=== PATIENT | female | born 2000 | race Caucasian/White ===

== ENCOUNTER 2023-09-04 12:04 | Emergency (ER) | payer OTHER ==
[2023-09-04 12:17] VITALS: RESP 18; TEMP 98.2
[2023-09-04 12:33] LABS: Absolute Neutrophil Ct (ANC) 6.73 x10^3/uL (1.4-6.9); BASOPHIL % 0.4 % (0.0-0.4); Basophil (Absolute #) 0.04 x10^3/uL (0-0.4); Eosinophil % 1.6 % (0.00-5.0); Eosinophil (Absolute #) 0.18 x10^3/uL (0-0.5); Hematocrit 45.4 % (35-47); Hemoglobin 14.6 g/dL (12.0-16.0); IMMATURE GRAN # 0.04 x10^3u/L (0.00-0.03); IMMATURE GRAN % 0.4 % (0.00-0.4); Lymphocyte (Absolute #) 3.55 x10^3/uL (1.0-4.6); Lymphocytes % 31.4 % (24.0-44.0); Mean Cell Volume 93.6 fL (78-100); Mean Corpuscular Hemoglobin 30.1 pg (26-32); Mean Corpuscular Hgb Concent. 32.2 g/dL (32-36); Mean Platelet Volume 9.5 fL (7.5-11.0); Monocyte (Absolute #) 0.78 x10^3/uL (0.0-1.3); Monocytes % 6.9 % (0.0-12.0); Neutrophil % 59.3 % (36.0-66.0); Platelet Count 465 x10^3/uL (150-450); Red Blood Count 4.85 x10^6/uL (4.1-5.4); Red Cell Distribution Width 12.1 % (11.5-14.0); White Blood Count 11.3 x10^3/uL (4.0-10.5)
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
[2023-09-04 12:50] LABS: ALBUMIN 4.5 g/dL (3.5-5.0); ANION GAP 12.3 MEQ/L (5-15); BILIRUBIN,TOTAL 0.5 mg/dL (0.2-1.3); Calcium 9.8 mg/dL (8.4-10.2); Creatinine 1 0.86 mg/dL (0.52-1.04); EST GLOMERULAR FILTRATION RATE 96.1 ML/MIN; Potassium 3.8 mmol/L (3.5-5.1); Total Protein 8.2 g/dL (6.3-8.2)
[2023-09-04 12:59] LABS: HCG URINE TEST NEGATIVE (NEGATIVE)
[2023-09-04 13:21] LABS: ADD URINE CULTURE? YES (NO); Appearance Cloudy (Clear); Bacteria Moderate /HPF (None Seen); Bilirubin Negative (Negative); Blood Negative (Negative); Epithelial Cells Moderate /HPF (None Seen); Glucose, Urine Negative (Negative); Hyaline Casts NONE SEEN /LPF (0-2); Ketones Trace (Negative); Leukocyte Esterase Small (Negative); Nitrite Negative (Negative); Ph 5.5 (4.6-8.0); Protein,Urine Dip Trace (Negative); RBC 0-2 /HPF (0-5); Specific Gravity >=1.030 (1.005-1.030); WBC 21-50 /HPF (0-5)
[2023-09-04 13:25] LABS: Barbiturate,Urine NEGATIVE (NEGATIVE); Benzodiazepine,Urine NEGATIVE (NEGATIVE); Cocaine,Urine NEGATIVE (NEGATIVE); Methadone,Urine NEGATIVE (NEGATIVE); Opiate,Urine NEGATIVE (NEGATIVE); PCP,Urine NEGATIVE (NEGATIVE); THC,Urine POSITIVE (NEGATIVE)
[2023-09-04 14:02] VITALS: BP 93/68; PULSE 88
[2023-09-04] MEDS ORDERED: Rocephin 1000 MG INJ IM ONE (14:02)
[2023-09-04] MEDS ORDERED: Vibramycin 100 MG ONE (14:09)
[2023-09-04] MEDS ORDERED: Rocephin 1000 MG INJ ONE (14:09)
[2023-09-04 14:10] VITALS: O2SAT 98
[2023-09-04] MEDS ORDERED: XYLOCAINE 1% HCL 20 ML MDV ONE (14:11)
[2023-09-04] MEDS ORDERED: Vibramycin 100 MG PO SCH (22:00)
== END 2023-09-04 14:26 | disposition home or self-care (01) ==
LOC: ED 12:04
DX: Z02.89 Encounter for other administrative examinations (principal); Z20.2 Contact with and (suspected) exposure to infections with a predominantly sexual mode of transmission; Z28.310 Unvaccinated for COVID-19
CPT/HCPCS: 36415; 80053; 80307; 81001; 81025; 82077; 85025; 87086; 96372; 99283; J0696; A9270-GY